=== PATIENT | male | born 1985 | race Two or more races ===

== ENCOUNTER 2024-07-24 15:06 | Emergency (ER) | payer OTHER ==
[~2024-07-24] VITALS: Ht 182.9 cm; Wt 90.7 kg
[2024-07-24 15:25] VITALS: BP 123/78; TEMP 99; O2SAT 98
[2024-07-24] MEDS ORDERED: AMOX875T2 PO (15:41)
== END 2024-07-24 15:53 | disposition home or self-care (01) ==
LOC: ER 15:09
DX: H66.93 Otitis media, unspecified, bilateral (principal)

== ENCOUNTER 2025-11-09 04:54 | Emergency (ER) | payer OTHER ==
[~2025-11-09] VITALS: Ht 182.9 cm; Wt 113.4 kg
[~2025-11-09 04:54] MED LIST: AMOX875T2 PO
[2025-11-09 06:01] LABS: PLATELET COUNT (AUTO) 243 K/uL (150-450); RED BLOOD CELL COUNT(AUTO) 4.34 MIL/uL (4.5-6.0); RED CELL DISTRIBUTION WIDTH 13.2 % (11.5-15.0); WHITE BLOOD COUNT (AUTO) 7.0 K/uL (4.3-11.0)
[2025-11-09 06:09] LABS: CALCIUM, SERUM 8.4 mg/dL (8.5-10.1); CREATININE 1.1 mg/dL (0.6-1.3); SODIUM SERUM 143.0 mmol/L (136-145); UREA NITROGEN, BLOOD 21.0 mg/dL (7-18)
[2025-11-09 06:14] LABS: ASPARTATE AMINOTRANSFERASE 19.0 U/L (15-37); TOTAL PROTEIN, SERUM 7.4 g/dL (6.4-8.2)
[2025-11-09] MEDS ORDERED: CEFA500C PO (06:14)
[2025-11-09] MEDS ORDERED: SULF1TAB47 PO (06:14)
[2025-11-09] MEDS ORDERED: CEFTRIAXONE 1GM BAG (ER ONLY) 50 ML IV ONE (06:41)
[2025-11-09] MEDS ORDERED: SULFAMETH/TRIMETH 800/160 MG 1 UDTAB TABLET ONE (06:42)
[2025-11-09] MEDS: SULFAMETH/TRIMETH 800/160 MG 1 UDTAB TABLET PO ONE (06:48)
[2025-11-09] MEDS: CEFTRIAXONE 1GM BAG (ER ONLY) 1 GM/50 ML PIGGYBACK IV ONE (06:48)
[2025-11-09 06:56] VITALS: BP 121/70; TEMP 98.3; O2SAT 97
== END 2025-11-09 06:57 | disposition home or self-care (01) ==
LOC: ER 04:57
DX: L03.116 Cellulitis of left lower limb (principal)
CPT/HCPCS: 99284; 96365; 73590; 85025; 80048; 80076; 36415; J0696